=== PATIENT | female | born 1995 | race Caucasian/White ===

== ENCOUNTER 2016-06-27 16:01 | Emergency (ER) | payer OTHER ==
[~2016-06-27] VITALS: Ht 165.1 cm; Wt 58.6 kg
[~2016-06-27 16:01] MED LIST: BCPILLS PO; ZTHM250 PO
[2016-06-27 16:14] VITALS: BP 132/89; PULSE 64; TEMP 36.7; O2SAT 99; Ht 165.1 cm; Wt 58.6 kg
--- NOTE | 2016-06-27 16:43 | EMERGENCY ROOM VISIT NOTE ---
ED Visit Note First contact with patient: 16:17 CHIEF COMPLAINT: knee pain HISTORY OF PRESENT ILLNESS: This 20-year-old female patient presents to the emergency department ambulatory after sustaining an injury to the left knee. The patient has a history of anterior cruciate ligament repair 2 years ago. She also had a meniscal tear that was not repaired at that time. She states in the recent past she has noticed increasing pain to the posterior lateral left knee. She states that she was sitting on her knees 2 days ago and when she got up she felt more significant pain in the left knee. The patient denies any other injuries besides their knee. The patient denies swelling or bruising. There is pain over the posterior lateral aspect. They rate the pain as 0 when she does not bear weight. The patient states they are able to walk on it. No numbness or tingling. No ankle, foot or hip pain. REVIEW OF SYSTEMS: A 6 system review of systems was completed with positives and pertinent negatives listed in the HPI. ALLERGIES: No known drug allergies MEDICATIONS: control pills PMH: Left Anterior cruciate ligament repair SOCIAL HISTORY: The patient is a student. She is from [place]. She does not smoke. PHYSICAL EXAM: Vital Signs: Reviewed Nurse's notes, vital signs stable. GENERAL : This is a 20-year-old female, no acute distress, but appears in pain, well- developed, well-nourished. MENTAL STATUS: Alert, oriented to person place and time, and cooperative. MUSCULOSKELETAL: The left knee is nontender swollen. There is no ecchymosis. There is no joint effusion present. The patient is non- tender. There is no obvious joint line tenderness. The patella does not subluxate. Range of motion is intact. Strength of the quads and hamstrings is 5/ 5. Monica's is negative. Néstor's and Anterior Drawer tests are negative for obvious laxity. There is no obvious laxity with varus and valgus stressing. The foot and toes are warm and well-perfused. Dorsalis pedis pulse 2+. Sensation to pain and light touch is intact. Capillary refill less than 2 seconds. EMERGENCY DEPARTMENT COURSE: I examined the patient. The patient may have a worsening of her previous meniscal tear. She did not fall to the ground. Fracture is considered less likely but I did discuss obtaining a baseline x- ray. After the patient spoke with her mother mother who is a nurse practitioner they decided to defer an x-ray at this time. She also declined a splint and stated she would prefer to buy one [id number]. She should follow-up with orthopedics for further evaluation and management. The patient was discharged home in good condition. DIAGNOSIS: Left knee pain DISCHARGE INSTRUCTIONS: Ice and elevate knee for swelling and pain. Wear knee immobilizer when up and about. Ibuprofen 600 mg g every 6 hrs for pain. Follow-up with Orthopedics for further evaluation and treatment - call for appointment. Current/Historical Medications Scheduled Control Pills ( Control Pills), 1 TAB PO DAILY Allergies Coded Allergies: No Known Allergies (Unverified , 06/27/16) Vital Signs Date Time Temp Pulse Resp B/P Pulse Ox O2 Delivery O2 Flow Rate FiO2 06/27/16 16:14 36.7 64 18 132/89 99 Room Air Departure Information Impression Primary Impression: Knee pain Dispostion Home / Self-Care Condition GOOD Referrals No Doctor, Assigned (PCP) Tyler Shirley MD Patient Instructions Knee Pain, My [facility] [employer] Additional Instructions Ice and elevate knee for swelling and pain. Wear knee immobilizer when up and about. Ibuprofen 600 mg g every 6 hrs for pain. Follow-up with Orthopedics for further evaluation and treatment - call for appointment. Problem Qualifiers Primary Impression: Knee pain Laterality: left Chronicity: acute Qualified Codes: M25.562 - Pain in left knee
== END 2016-06-27 17:09 | disposition home or self-care (01) ==
LOC: C.EDB 16:02 → C.EDD 17:09
DX: M25.562 Pain in left knee (principal); Z87.828 Personal history of other (healed) physical injury and trauma